=== PATIENT | female | born 1995 | race Caucasian/White ===

== ENCOUNTER 2023-12-03 23:14 | Emergency (ER) | payer OTHER ==
[~2023-12-03] VITALS: Ht 167.6 cm; Wt 62.0 kg
[2023-12-03 23:20] VITALS: O2SAT 100
[2023-12-03 23:43] LABS: BASOPHILS % 0.5 % (0.0-2.0); EOSINOPHILS % 2.7 % (0.0-5.0); HEMATOCRIT. 39.7 % (36.0-48.0); HEMOGLOBIN. 13.4 g/dL (12.0-16.0); LYMPHOCYTES % 40.5 % (20.0-50.0); MEAN CORPUSCULAR HEMOGLOBIN 30.1 pg (28.0-32.0); MEAN CORPUSCULAR HGB CONC 33.9 g/dL (31.0-37.0); MEAN CORPUSCULAR VOLUME 88.8 fL (81.0-99.0); MEAN PLATELET VOLUME 7.6 fl (7.4-10.4); MONOCYTES % 4.9 % (2.0-8.0); NEUTROPHILS % 51.4 % (40.0-76.0); PLATELET 342 x1000/uL (130-400); RED BLOOD CELL COUNT 4.47 mill/uL (4.2-5.4); RED CELL DISTRIBUTION WIDTH 13.5 % (11.6-14.6); WHITE BLOOD COUNT 8.9 x1000/uL (4.5-11.0)
[2023-12-04 00:05] LABS: HCG SCREEN NEGATIVE
[2023-12-04 00:18] LABS: CHLORIDE 107 mEq/L (98-107); POTASSIUM 3.8 mEq/L (3.5-5.1); SODIUM 139 mEq/L (136-145)
[2023-12-04 00:19] LABS: CARBON DIOXIDE 26 mEq/L (21-32)
[2023-12-04 00:20] LABS: CALCIUM 9.5 mg/dL (8.7-10.4)
[2023-12-04 00:24] LABS: CREATININE 0.9 mg/dL (0.6-1.0); GLUCOSE 86 mg/dL (70-105)
[2023-12-04 00:25] LABS: UREA NITROGEN BLOOD 16 mg/dL (9-23)
[2023-12-04 00:56] LABS: TROPONIN I HIGH SENSITIVITY < 4 ng/L (3.0-34)
[2023-12-04 02:28] VITALS: BP 108/73; PULSE 77; RESP 18; TEMP 36.78072; O2SAT 100
== END 2023-12-04 02:28 | disposition home or self-care (01) ==
LOC: ER 23:14
DX: R00.2 Palpitations (principal); R07.89 Other chest pain
CPT/HCPCS: 36415; 71045; 80048; 84484; 84703; 85025; 93005; 99285